=== PATIENT | female | born 1940 | race African-American/Black ===

== ENCOUNTER 2017-02-26 11:45 | Emergency (ER) | payer OTHER, BC ==
[2017-02-26 12:01] VITALS: BP 153/80; PULSE 80; TEMP 97.6; BMI 25.0
--- NOTE | 2017-02-26 12:45 | PDOC ---
History of Present Illness - General Chief Complaint: Bite Stated Complaint: BITE Time Seen by Provider: 02/26/17 12:35 History Source: Patient Exam Limitations: No Limitations - History of Present Illness Initial Comments: 02/26/17 16:19 Patient is a 76-year-old female, no significant medical history currently on no medications presents to the emergency department with multiple bug bites, erythema surrounding bug bite on right posterior forearm. No pain. Area is pruritic. Past Medical History: Denies. Allergies: No known allergies Medications: None Family History: Non-contributory Social History: Denies smoking, alcohol use, or IVDU Review of Systems GENERAL/CONSTITUTIONAL: No fever or chills. No weakness. No weight change. HEAD, EYES, EARS, NOSE AND THROAT: No change in vision. No ear pain or discharge. No sore throat. CARDIOVASCULAR: No chest pain or shortness of breath. RESPIRATORY: No cough, wheezing, or hemoptysis. GASTROINTESTINAL: No nausea, vomiting, diarrhea or constipation. No rectal bleeding. GENITOURINARY: No dysuria, frequency, or change in urination. MUSCULOSKELETAL: No joint or muscle swelling or pain. No neck or back pain. SKIN: No rash or easy bruising. Erythema to right and left forearms. NEUROLOGIC: No headache, vertigo, loss of consciousness, or loss of sensation. PSYCHIATRIC: No depression or anxiety. ENDOCRINE: No increased thirst. No abnormal weight change. HEMATOLOGIC/LYMPHATIC: No anemia, easy bleeding, or history of blood clots. ALLERGIC/IMMUNOLOGIC: Large wheal to right posterior forearm, erythematous raised area 2 to left forearm. Physical Exam: GENERAL: The patient is awake, alert, and fully oriented, in no acute distress. HEAD: Normal with no signs of trauma. EYES: Pupils equal, round and reactive to light, extraocular movements intact, sclera anicteric, conjunctiva clear. ENT: Ears normal, nares patent, oropharynx clear without exudates. Moist mucous membranes. No uvula deviation NECK: Normal range of motion, supple without lymphadenopathy, JVD, or masses. LUNGS: Breath sounds equal, clear to auscultation bilaterally. No wheezes, and no crackles. HEART: Regular rate and rhythm, normal S1 and S2 without murmur, rub or gallop. ABDOMEN: Soft, nontender, normoactive bowel sounds. No guarding, no rebound. No masses. No bruising or abrasions MUSCULOSKELETAL: Normal range of motion, no edema. No clubbing or cyanosis. No cords, erythema, or tenderness. No CVA Tenderness with fist. NEUROLOGICAL: Cranial nerves II through XII grossly intact. Normal speech, normal gait. PSYCH: Normal mood, normal affect. SKIN: Visible papule to right posterior forearm with surrounding erythema and induration, no warmth. 2 macular lesions to left forearm non-umbilicated nonvesicular, no streaking or evidence of cellulitis. Large wheal surrounding papular lesion on right posterior forearm measuring approximately 14 centimeters in length and 6 cm in width. Well-defined. Past History - Past Medical History Allergies/Adverse Reactions: Allergies Allergy/AdvReac Type Severity Reaction Status Date / Time No Known Allergies Allergy Verified 02/26/17 11:55 Home Medications: Ambulatory Orders Cephalexin Monohydrate [Keflex -] 500 mg PO TID #30 capsule 02/26/17 Hydrocortisone 2.5% Lotion [Hytone 2.5% Lotion -] 1 applic TP BID #1 bottle Other medical history: Denies - Immunization History Immunization Up to Date: Yes - Suicide/Smoking/Psychosocial Hx Smoking Status: No Smoking History: Never smoked Number of Cigarettes Smoked Daily: 0 Information on smoking cessation initiated: No Hx Alcohol Use: No Drug/Substance Use Hx: No Substance Use Type: None *Physical Exam - Vital Signs Last Vital Signs Temp Pulse Resp BP Pulse Ox 97.6 F 80 16 153/80 98 02/26/17 11:55 02/26/17 11:55 02/26/17 11:55 02/26/17 11:55 02/26/17 11:55 Medical Decision Making - Medical Decision Making 02/26/17 16:22 A/P: Patient here for evaluation of multiple bug bites to left and right forearm , the right forearm with surrounding erythema, localized IgE reaction. Warm to touch. Does not appear cellulitic does appear to be localized reaction, no streaking. Patient to apply cool compresses to area, will prescribe Hytone 2.5% . Explained to patient that area may take several days to resolve should start to resolve after 72 hours. Area was marked with a surgical marker in order to monitor, if any increased redness, swelling, or signs of infection or cellulitis patient to turn to ER for antibiotic therapy. 02/26/17 16:28 *DC/Admit/Observation/Transfer Diagnosis at time of Disposition: Bug bite Qualifiers: Encounter type: initial encounter Qualified Code(s): W57.XXXA - Bitten or stung by nonvenomous insect and other nonvenomous arthropods, initial encounter Insect bite of forehead with local reaction Qualifiers: Encounter type: initial encounter Qualified Code(s): S00.86XA - Insect bite ( nonvenomous) of other part of head, initial encounter; W57.XXXA - Bitten or stung by nonvenomous insect and other nonvenomous arthropods, initial encounter - Discharge Dispostion Disposition: HOME Condition at time of disposition: Good Admit: No - Prescriptions Prescriptions: Hydrocortisone 2.5% Lotion [Hytone 2.5% Lotion -] 1 applic TP BID #1 bottle Cephalexin Monohydrate [Keflex -] 500 mg PO TID #30 capsule - Patient Instructions Printed Discharge Instructions: DI for Insect Bites and Stings Additional Instructions: Please note swelling may persist for the next 2 days, total of 72 hours since initial bite. Apply cool compresses to area, as noted area was marked if any increased redness , swelling, or streaking up arm please, immediately back to emergency department. If symptoms are resolving by tomorrow, please do not take antibiotics.
== END 2017-02-26 12:50 | disposition home or self-care (01) ==
LOC: JERFT 11:45
DX: S51.851A Open bite of right forearm, initial encounter (principal); W57.XXXA Bitten or stung by nonvenomous insect and other nonvenomous arthropods, initial encounter; Y93.89 Activity, other specified; Y92.9 Unspecified place or not applicable
CPT/HCPCS: 99281-25

== ENCOUNTER 2018-04-04 01:17 | Inpatient (IN) | payer OTHER, BC ==
[2018-04-04 01:34] VITALS: BMI 29.2
--- NOTE | 2018-04-04 01:44 | PDOC ---
Attending Attestation - Resident Resident Name: VibhaalysialexaMarcial - ED Attending Attestation I have performed the following: I have examined & evaluated the patient, The case was reviewed & discussed with the resident, I agree w/resident's findings & plan, Exceptions are as noted - HPI HPI: 04/04/18 05:50 77 years old no significant past medical history presents to the emergency department with sudden onset nonexertional right lower chest discomfort. Started yesterday at home while at rest it is intermittent exact exacerbated by deep inspiration and lying flat. Denies left-sided chest pain. There is no associated diaphoresis exertional component nausea or vomiting no history of similar. No PE or DVT risk factors. - Physicial Exam PE: 04/04/18 05:50 Vitals: Triage Vital signs reviewed General Appearance: no acute distress, well nourished well developed, Head: Atraumatic, Neck: Supple;No Nucal rigidity Chest Wall: Nontender Cardiac: Regular rate and rhythym, no murmurs, no rubs, no gallops, Lungs: Clear to auscultation bilateral, good air movement bilaterally, Abdomen: Soft, non distended, normal bowel sounds, non tender to palpation Extremities: Full range of motion to all extremities, no cyanosis, clubbing, or edema Skin: Warm and dry, no rashes or lesions, no rash, no petechiae Neuro: AOX3; Cranial Nerves 2-12 grossly intact, Strength intact to all extremities, Sensation intact to all extremities,gait normal Psych: normal mood, normal affect - Medical Decision Making 04/04/18 06:57 Pleuritic chest pain low risk for PE We'll check labs d-dimer EKG chest x-ray observe and reassess Reevaluation d-dimer elevated will CTA. CTA positive for right lower lobe PE Normal kidney function We'll treat with Lovenox and admit the hospital for further management. Heart Score/ECG Review - History History: Slightly suspicious - Electrocardiogram EKG: Normal - Age Age: >/= 65 - Risk Factors Based on the list above the patient has:: No risk factors known - Troponin Troponin: </= normal limit - Score Heart Score - Total: 2 - ECG Impressions Comment:: 04/04/18 05:52 EKG performed at 2:15 demonstrates sinus rhythm no ST elevations or T-wave inversions Interpreted by me.
--- NOTE | 2018-04-04 01:57 | PDOC ---
History of Present Illness - General History Source: Patient Exam Limitations: No Limitations - History of Present Illness Initial Comments: 04/04/18 01:52 77 yo female no significant PMH (does not follow with a Primary Care Doctor) presents to the ED for sudden onset non exertional right lower chest pain. Pain started yesterday at home while at rest, it is intermittent made worse with deep breaths and lying flat, is located maxillary line at the bottom of the 12th rib, described as sharp/stabbing. Pt took 1 over the counter Tylenol tablet yesterday which did help with the pain. Denies N/V/F/C, CP, SOB, abdominal pain, back pain or changes in bowel or bladder habits. <Marcial Connell - Last Filed: 04/04/18 07:12> <Tien Doherty - Last Filed: 04/04/18 09:01> - General Chief Complaint: Pain Stated Complaint: RIB PAIN Time Seen by Provider: 04/04/18 01:24 Past History - Immunization History Immunization Up to Date: Yes - Suicide/Smoking/Psychosocial Hx Smoking Status: No Smoking History: Never smoked Have you smoked in the past 12 months: No Number of Cigarettes Smoked Daily: 0 Information on smoking cessation initiated: No Hx Alcohol Use: No Drug/Substance Use Hx: No Substance Use Type: None <Marcial Connell - Last Filed: 04/04/18 07:12> <Tien Doherty - Last Filed: 04/04/18 09:01> - Past Medical History Allergies/Adverse Reactions: Allergies Allergy/AdvReac Type Severity Reaction Status Date / Time No Known Allergies Allergy Verified 04/04/18 01:32 Home Medications: Ambulatory Orders Cephalexin Monohydrate [Keflex -] 500 mg PO TID #30 capsule 02/26/17 Hydrocortisone 2.5% Lotion [Hytone 2.5% Lotion -] 1 applic TP BID #1 bottle Review of Systems - Review of Systems Constitutional: No: Chills, Fever Respiratory: Yes: Other (right lower chest pain with deep inspiration). No: Cough, Shortness of Breath Cardiac (ROS): No: Chest Pain, Edema ABD/GI: No: Constipated, Diarrhea, Nausea, Vomiting : No: Burning, Dysuria Musculoskeletal: No: Back Pain <Marcial Connell - Last Filed: 04/04/18 07:12> *Physical Exam - Vital Signs Last Vital Signs Temp Pulse Resp BP Pulse Ox 98.0 F 78 18 146/87 96 04/04/18 01:32 04/04/18 01:32 04/04/18 01:32 04/04/18 01:32 04/04/18 01:32 - Physical Exam General Appearance: Yes: Nourished, Appropriately Dressed. No: Apparent Distress HEENT: positive: EOMI Respiratory/Chest: positive: Lungs Clear, Normal Breath Sounds. negative: Crackles, Rales, Stridor, Wheezing Cardiovascular: positive: Regular Rhythm, Regular Rate, S1, S2, Other (right lower chest pain not reproducible on palpation). negative: Edema, JVD, Murmur Vascular Pulses: Dorsalis-Pedis (R): 3+, Doralis-Pedis (L): 3+ Gastrointestinal/Abdominal: positive: Normal Bowel Sounds, Flat, Soft. negative : Pulsatile Mass, Distended, Guarding, Rebound, Tenderness Extremity: positive: Normal Capillary Refill Integumentary: positive: Normal Color, Dry, Warm Neurologic: positive: Fully Oriented, Alert, Normal Mood/Affect, Normal Response <Marcial Connell - Last Filed: 04/04/18 07:12> - Vital Signs Last Vital Signs Temp Pulse Resp BP Pulse Ox 98.0 F 78 18 146/87 96 04/04/18 01:32 04/04/18 01:32 04/04/18 01:32 04/04/18 01:32 04/04/18 01:32 <Tien Doherty - Last Filed: 04/04/18 09:01> ED Treatment Course - LABORATORY CBC & Chemistry Diagram: 04/04/18 02:04 04/04/18 02:04 - RADIOLOGY Radiology Studies Ordered: Category Date Time Status CHEST PA & LAT [RAD] Stat Radiology 04/04/18 01:43 Ordered <Marcial Connell - Last Filed: 04/04/18 07:12> - LABORATORY CBC & Chemistry Diagram: 04/04/18 02:04 04/04/18 02:04 - ADDITIONAL ORDERS Additional order review: Laboratory Results 04/04/18 04/04/18 04/04/18 06:49 02:04 02:04 D-Dimer 3401 H Sodium 140 Potassium 4.0 Chloride 106 Carbon Dioxide 28 Anion Gap 6 L BUN 12 Creatinine 0.7 Creat Clearance w eGFR > 60 Random Glucose 104 Calcium 8.6 Total Bilirubin 0.3 AST 13 L ALT 15 Alkaline Phosphatase 73 Creatine Kinase 55 Troponin I < 0.02 Total Protein 6.7 Albumin 3.4 Urine Color Urine Appearance Urine pH Ur Specific [place] Urine Protein Urine Glucose (UA) Urine Ketones Urine Blood Urine Nitrite Urine Bilirubin Urine Urobilinogen Ur Leukocyte Esterase Urine WBC (Auto) Urine RBC (Auto) Stool Occult Blood Negative 04/04/18 02:04 D-Dimer Sodium Potassium Chloride Carbon Dioxide Anion Gap BUN Creatinine Creat Clearance w eGFR Random Glucose Calcium Total Bilirubin AST ALT Alkaline Phosphatase Creatine Kinase Troponin I Total Protein Albumin Urine Color Straw Urine Appearance Clear Urine pH 6.0 Ur Specific [place] 1.005 L Urine Protein Negative Urine Glucose (UA) Negative Urine Ketones Negative Urine Blood Negative Urine Nitrite Negative Urine Bilirubin Negative Urine Urobilinogen Negative Ur Leukocyte Esterase 1+ H Urine WBC (Auto) 2 Urine RBC (Auto) 1 Stool Occult Blood 04/04/18 02:04 RBC 4.80 MCV 80.8 MCHC 32.1 RDW 15.4 MPV 9.6 D Neutrophils % 60.5 Lymphocytes % 26.9 D Monocytes % 9.0 Eosinophils % 3.1 Basophils % 0.5 - Medications Given in the ED: ED Medications Discontinued Medications Generic Name Dose Route Start Last Admin Trade Name Freq PRN Reason Stop Dose Admin Enoxaparin Sodium 77 mg 04/04/18 06:54 04/04/18 08:03 Lovenox - SQ 04/04/18 06:55 Not Given ONCE ONE Enoxaparin Sodium 80 mg 04/04/18 07:21 04/04/18 08:15 Lovenox - SQ 04/04/18 07:22 80 mg ONCE ONE Administration <Tien Doherty - Last Filed: 04/04/18 09:01> Medical Decision Making - Medical Decision Making 04/04/18 03:51 77 yo female presents with 2 days of sudden onset right lower chest pain. Pain made worse with inspiration. vitals stable DDX: ACS, PE, costochondritis, gallstones D dimer 3400s, will do chest CTA to r/o PE 04/04/18 07:09 CTA positive for PE Started on 1mg/kg lovenox, stool occult sent and will admit pt to hospitalist Sign out to Dr. Arias <Marcial Connell - Last Filed: 04/04/18 07:12> *DC/Admit/Observation/Transfer - Discharge Dispostion Decision to Admit order: Yes <Marcial Connell - Last Filed: 04/04/18 07:12> <Tien Doherty - Last Filed: 04/04/18 09:01> Diagnosis at time of Disposition: PE (pulmonary thromboembolism) - Discharge Dispostion Condition at time of disposition: Stable
[2018-04-04 02:25] LABS: BASO % 0.5 % (0-2.0); EOS % 3.1 % (0-4.5); HEMATOCRIT 38.8 % (32.4-45.2); HEMOGLOBIN 12.4 GM/dL (10.7-15.3); LYMPH % 26.9 % (8-40); MCH 25.9 pg (25.7-33.7); MCHC 32.1 g/dl (32.0-36.0); MEAN CELL VOLUME 80.8 fl (80-96); MEAN PLT VOLUME 9.6 fl (7.5-11.1); NEUT % 60.5 % (42.8-82.8); PLATELET COUNT 158 K/MM3 (134-434); RDW 15.4 % (11.6-15.6); WHITE BLOOD COUNT 6.3 K/mm3 (4.0-10.0)
[2018-04-04 02:27] LABS: URINE APPEARANCE CLEAR; URINE BILIRUBIN NEGATIVE (<2.0 mg/dL); URINE COLOR STRAW; URINE GLUCOSE (UA) NEGATIVE (NEGATIVE); URINE KETONE NEGATIVE (NEGATIVE); URINE LEUK ESTERASE 1+ (NEGATIVE); URINE NITRITE NEGATIVE (NEGATIVE); URINE PROTEIN NEGATIVE (NEGATIVE); URINE UROBILINOGEN NEGATIVE mg/dL (0.2-1.0)
[2018-04-04 02:41] LABS: ALBUMIN 3.4 g/dl (3.4-5.0); ALK PHOS 73 U/L (45-117); ANION GAP 6 MMOL/L (8-16); BILIRUBIN,TOTAL 0.3 mg/dL (0.2-1); BLOOD UREA NITROGEN 12 mg/dL (7-18); CALCIUM 8.6 mg/dL (8.5-10.1); CHLORIDE 106 mmol/L (98-107); CO2 28 mmol/L (21-32); CREATININE 0.7 mg/dL (0.55-1.3); GLUCOSE,RANDOM 104 mg/dL (74-106); SGOT/AST 13 U/L (15-37); SGPT/ALT 15 U/L (13-61); SODIUM 140 mmol/L (136-145); TOT PROT 6.7 g/dl (6.4-8.2)
[2018-04-04] MEDS ORDERED: ENOXAPARIN NA (PORCINE) 80 MG/0.8 ML DISP.SYRIN SQ ONE ×3 (06:54→08:05)
--- NOTE | 2018-04-04 07:40 | HP ---
CHIEF COMPLAINT: chest pain PCP:does not have one HISTORY OF PRESENT ILLNESS: 77 year old AA healthy lady with no pmhx presented with 2 days history of discomfort feeling beneath her right lower ribs , pain worsening last night with deep breathing that prompted the pt to come to ED. she denies any fever, chills N/V/D/C, denies any palpitation or sob , denies light headedness , abdominal pain or urinary symptoms , denies leg swelling or joint pain. no recent travel or sick contact. ER course was notable for: (1)CBC, BMP (2)D dimer 3400 (3)CTA positive for PE , started on Lovenox Recent Travel:denies PAST MEDICAL HISTORY: nothing PAST SURGICAL HISTORY: Left eye cataract , hysterectomy at age of 38 . 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 Family History: no significant , parents at age 95 and 101. Allergies No Known Allergies Allergy (Verified 04/04/18 01:32) HOME MEDICATIONS: Home Medications Medication Instructions Recorded Cephalexin Monohydrate [Keflex -] 500 mg PO TID #30 capsule 02/26/17 Hydrocortisone 2.5% Lotion [Hytone 1 applic TP BID #1 bottle 02/26/17 2.5% Lotion -] REVIEW OF SYSTEMS denies any other symptoms PHYSICAL EXAMINATION Vital Signs - 24 hr 04/04/18 01:32 Temperature 98.0 F Pulse Rate 78 Respiratory 18 Rate Blood Pressure 146/87 O2 Sat by Pulse 96 Oximetry (%) GENERAL: AAOx3 in NAD HEAD: NC/AT EYES: EOMI, Conjunctiva clear, sclera anicteric ENT: moist mucous membrane NECK: Supple, no JVD LUNGS: decrease breath sound at the bases with mild crackles , no accessory muscle use. HEART: RRR, NSR, normal s1, s2, murmur no M/R/G ABDOMEN: Soft, ND, NT, +BS 4 Q, no CVA Tenderness LOWER EXTREMITIES: no edema, +2DP pulse, NEUROLOGICAL: No focal deficit. Normal speech. gait not observed. PSYCHIATRIC: Cooperative. Good eye contact. Appropriate mood and affect. SKIN: Warm, dry, Laboratory Results - last 24 hr 04/04/18 04/04/18 04/04/18 02:04 02:04 02:04 WBC 6.3 RBC 4.80 Hgb 12.4 Hct 38.8 MCV 80.8 MCH 25.9 MCHC 32.1 RDW 15.4 Plt Count 158 MPV 9.6 D Absolute Neuts (auto) 3.8 Neutrophils % 60.5 Lymphocytes % 26.9 D Monocytes % 9.0 Eosinophils % 3.1 Basophils % 0.5 Nucleated RBC % 0 D-Dimer Sodium 140 Potassium 4.0 Chloride 106 Carbon Dioxide 28 Anion Gap 6 L BUN 12 Creatinine 0.7 Creat Clearance w eGFR > 60 Random Glucose 104 Calcium 8.6 Total Bilirubin 0.3 AST 13 L ALT 15 Alkaline Phosphatase 73 Creatine Kinase 55 Troponin I < 0.02 Total Protein 6.7 Albumin 3.4 Urine Color Straw Urine Appearance Clear Urine pH 6.0 Ur Specific [place] 1.005 L Urine Protein Negative Urine Glucose (UA) Negative Urine Ketones Negative Urine Blood Negative Urine Nitrite Negative Urine Bilirubin Negative Urine Urobilinogen Negative Ur Leukocyte Esterase 1+ H Urine WBC (Auto) 2 Urine RBC (Auto) 1 04/04/18 02:04 WBC RBC Hgb Hct MCV MCH MCHC RDW Plt Count MPV Absolute Neuts (auto) Neutrophils % Lymphocytes % Monocytes % Eosinophils % Basophils % Nucleated RBC % D-Dimer 3401 H Sodium Potassium Chloride Carbon Dioxide Anion Gap BUN Creatinine Creat Clearance w eGFR Random Glucose Calcium Total Bilirubin AST ALT Alkaline Phosphatase Creatine Kinase Troponin I Total Protein Albumin Urine Color Urine Appearance Urine pH Ur Specific [place] Urine Protein Urine Glucose (UA) Urine Ketones Urine Blood Urine Nitrite Urine Bilirubin Urine Urobilinogen Ur Leukocyte Esterase Urine WBC (Auto) Urine RBC (Auto) CBC, BMP 04/04/18 02:04 04/04/18 02:04 ASSESSMENT/PLAN: 77 year old AA healthy female with no pmhx presented with 2 days history of right lower lobe chest pain worsen last night associated with sob was found to have PE and was admitted to tele for further evaluation and treatment . # PE * D dimer 1400, CTA positive for PE * Started on [id number] mg SQ Q 12 hour * EKG with no significant changes * tele monitor * Echo * repeat lab in am * lipid panel #Pulmonary nodule * follow up as out # RLL pleural effusion * likely due to PE * monitor for now no need for pleurocentesis # FEN * F: no standing fluids * E: WNL * N: regular diet # proph * Dvts on lovenox # dispo * admit to tele # code status : full code Visit type - Emergency Visit Emergency Visit: Yes ED Registration Date: 04/04/18 Care time: The patient presented to the Emergency Department on the above date and was hospitalized for further evaluation of their emergent condition. - New Patient This patient is new to me today: Yes Date on this admission: 04/04/18 - Critical Care Critical Care patient: No
[2018-04-04] MEDS ORDERED: ACETAMINOPHEN 325 MG TABLET (FP) PO PRN (08:30)
[2018-04-04 10:02] LABS: INR 1.15 (0.83-1.09); PROTHROMBIN TIME (PATIENT) 13.6 SEC (9.7-13.0)
[2018-04-04 10:05] LABS: ACTIVATED PTT 33.8 SECONDS (25.2-36.5)
[2018-04-04 10:19] LABS: CHOLESTEROL 173 mg/dL (50-200); HDL CHOLESTEROL 53 mg/dL (40-60); TRIGLYCERIDES 61 mg/dL (0-150)
--- NOTE | 2018-04-04 10:44 | EKG ---
Test Reason : Blood Pressure : / mmHG Vent. Rate : 081 BPM Atrial Rate : 081 BPM P-R Int : 162 ms QRS Dur : 086 ms QT Int : 378 ms P-R-T Axes : 051 -04 017 degrees QTc Int : 439 ms NORMAL SINUS RHYTHM WHEN COMPARED WITH ECG OF 01-DEC-2012 09:08, NO SIGNIFICANT CHANGE WAS FOUND Confirmed by STEPH HERNÁNDEZ MD ([id number]) on 04/04/2018 10:43:56 AM Referred By: Confirmed By:STEPH HERNÁNDEZ MD
--- NOTE | 2018-04-04 15:07 | ECHO ---
Name: MICHELLE MOTA Exam:Adult Echocardiogram Study Date: 04/04/2018 12:19 PM Age: 77 yrs Reason For Study: PULM EMBOLISM Height: 67 in Weight: 170 lb BSA: 1.9 m2 Left Ventricle Ejection Fraction = 60-65%. Right Ventricle The right ventricle is normal in size and function. Atria Normal left and right atrial size and function. Mitral Valve The mitral valve is normal in structure and function. There is no mitral valve stenosis. There is mil d mitral regurgitation. Tricuspid Valve The tricuspid valve is normal in structure and function. There is mild tricuspid regurgitation. Aortic Valve There is mild aortic sclerosis.;. No hemodynamically significant valvular aortic stenosis. No aortic regurgitation is present. Pulmonic Valve The pulmonic valve is normal in structure and function. There is no pulmonic valvular stenosis. There is no pulmonic valvular regurgitation. Great Vessels The aortic root is normal size. Pericardium/Pleura There is no pericardial effusion. Interpretation Summary Ejection Fraction = 60-65%. The right ventricle is normal in size and function. There is mild mitral regurgitation. There is mild tricuspid regurgitation. There is mild aortic sclerosis.; There is no pericardial effusion. MD Miller *Danielle 04/04/2018 03:06 PM
--- NOTE | 2018-04-04 16:29 | PN ---
Teaching Attending Note Name of Resident: Gumaro Torre ATTENDING PHYSICIAN STATEMENT I saw and evaluated the patient. I reviewed the resident's note and discussed the case with the resident. I agree with the resident's findings and plan as documented. SUBJECTIVE:77yo F with no PMH presented to the ER with R sided rib pain x5 days. was very vague initially and only felt it on deep inspiration. was worse last night which prompted her to the ER. has been having non productive cough only when out in the cold and claims she never coughed inside. never had similar symptoms in the past. denies OCP, smoking, recent travel, herbal supplements. no family hx of clotting or cancer Denies CP, SOB, fever, chills, N/V/C/D or hemoptysis OBJECTIVE: Last Vital Signs Temp Pulse Resp BP Pulse Ox 97.8 F 74 17 142/85 96 04/04/18 10:47 04/04/18 10:47 04/04/18 10:47 04/04/18 10:47 04/04/18 10:47 General NAD CV S1 S2 RRR no murmur/rub/gallop Lungs CTA B/L no wheezing/rales/rhonchi Abdomen Soft NT/ND Extremities trace pitting edema. no calf tenderness ASSESSMENT AND PLAN: 77yo F with no pMH presented to the ER with R rib pain and found to have a PE 1. RLL PE-Tele admission. no risk factors. hemodynamically stable. not hypoxic. cardiac markers neg x2. will start on full dose lovenox. echo to r/o strain. will monitor overnight. discussed anticoagulation options and wants to discuss in detail with tonight. will start tomorrow if remains stable. pleural effusion and consolidation likely reactive due to PE. with no fever/ leukocytosis or cough would not treat at this time. will need to f/u [facility] hematology as outpatient for hypercoagability workup to evaluate for etiology 2. spoke with present at bedside. all questions answered. verbalized understanding and agreement
--- NOTE | 2018-04-04 17:39 | CON.PULM ---
Consult Consult Specialty:: PULMONARY Referred by:: ELOISE Reason for Consultation:: PE - History of Present Illness Chief Complaint: SOB/CP History of Present Illness: 77 yo female no significant PMH (does not follow with a Primary Care Doctor) presents to the ED for sudden onset non exertional right lower chest pain. Pain started yesterday at home while at rest, it is intermittent made worse with deep breaths and lying flat, is located maxillary line at the bottom of the 12th rib, described as sharp/stabbing. Pt took 1 over the counter Tylenol tablet yesterday which did help with the pain. 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 No: AFIB Pulmonary: No: Asthma, COPD, O2 Dependent Gastrointestinal: No: Ascites Hepatobiliary: No: Cirrhosis Renal/: No: Renal Failure Reproductive: Yes: Postmenopausal Heme/Onc: No: Anemia Psych: No: Addictions Musculoskeletal: No: Chronic low back pain Endocrine: No: Diabetes Mellitus - Past Surgical History Past Surgical History: Yes: - Alcohol/Substance Use Hx Alcohol Use: No - Smoking History Smoking history: Never smoked Have you smoked in the past 12 months: No Aproximately how many cigarettes per day: 0 - Social History Usual Living Arrangement: With Spouse Place of : [facility] History of Recent Travel: No Home Medications - Allergies Allergies/Adverse Reactions: Allergies Allergy/AdvReac Type Severity Reaction Status Date / Time No Known Allergies Allergy Verified 04/04/18 01:32 - Home Medications Home Medications: Ambulatory Orders Cephalexin Monohydrate [Keflex -] 500 mg PO TID #30 capsule 02/26/17 Hydrocortisone 2.5% Lotion [Hytone 2.5% Lotion -] 1 applic TP BID #1 bottle Family Disease History - Family Disease History Family History: Unremarkable Review of Systems - Review of Systems Constitutional: denies: Fever Eyes: denies: Blurred Vision HENT: denies: Difficult Swallowing Neck: denies: Decreased ROM Cardiovascular: reports: Chest Pain, Shortness of Breath Respiratory: reports: Cough, Exercise Intolerance, SOB on Exertion. denies: Hemoptysis, Wheezing Gastrointestinal: denies: Abdominal Pain Genitourinary: denies: Burning Breasts: reports: No Symptoms Reported Musculoskeletal: reports: No Symptoms Integumentary: reports: No Symptoms Neurological: reports: No Symptoms Endocrine: reports: No Symptoms Physical Exam Vital Sings: Vital Signs Temperature 97.8 F 04/04/18 17:14 Pulse Rate 88 04/04/18 17:14 Respiratory Rate 18 04/04/18 17:14 Blood Pressure 134/81 04/04/18 17:14 O2 Sat by Pulse Oximetry (%) 96 04/04/18 17:14 Constitutional: Yes: Calm Eyes: Yes: EOM Intact HENT: Yes: Normocephalic Neck: Yes: Trachea Midline Cardiovascular: Yes: Regular Rate and Rhythm Respiratory: Yes: CTA Bilaterally ...Inspection: Yes: WNL ...Clubbing: No Gastrointestinal: Yes: Normal Bowel Sounds, Soft Renal/: Yes: WNL Musculoskeletal: Yes: WNL Extremities: Yes: WNL Edema: No Neurological: Yes: Alert Psychiatric: Yes: Alert Labs: CBC, BMP 04/04/18 02:04 04/04/18 02:04 REST REVIEWED Imaging - Results Chest X-ray: Report Reviewed, Image Reviewed Cat Scan: Report Reviewed, Image Reviewed Problem List - Problems (1) Hypertension Code(s): I10 - ESSENTIAL (PRIMARY) HYPERTENSION Assessment/Plan LIKELY UNPROVOKED PULMONARY EMBOLISM NOW ON LOVENOX WILL TRANSITION TO NOACS HYPERCOAG W/U TO BE DRAWN CHECK B/L LOWER EXT DOPPLERS(LOW INDEX OF SUSPICION FOR DVT) THANK YOU FOR THIS CONSULT Cindy RODRIGUES MD
[2018-04-04] MEDS: ENOXAPARIN NA (PORCINE) 80 MG/0.8 ML DISP.SYRIN SQ SCH (21:22)
[2018-04-04] MEDS ORDERED: ROSUVASTATIN CA 10 MG TABLET (FP) PO SCH (22:00)
[2018-04-04] MEDS ORDERED: ROSUVASTATIN CA 20 MG TABLET (FP) PO SCH (22:00)
[2018-04-05 07:01] LABS: BASO % 0.6 % (0-2.0); EOS % 3.2 % (0-4.5); HEMOGLOBIN 13.1 GM/dL (10.7-15.3); LYMPH % 33.7 % (8-40); MCH 27.1 pg (25.7-33.7); MCHC 33.6 g/dl (32.0-36.0); MEAN CELL VOLUME 80.7 fl (80-96); MEAN PLT VOLUME 9.5 fl (7.5-11.1); NEUT % 53.5 % (42.8-82.8); PLATELET COUNT 163 K/MM3 (134-434); RBC 4.83 M/mm3 (3.60-5.2); RDW 15.3 % (11.6-15.6); WHITE BLOOD COUNT 4.4 K/mm3 (4.0-10.0)
[2018-04-05 07:16] LABS: ALBUMIN 3.2 g/dl (3.4-5.0); ALK PHOS 73 U/L (45-117); ANION GAP 4 MMOL/L (8-16); BILIRUBIN,TOTAL 0.4 mg/dL (0.2-1); BLOOD UREA NITROGEN 12 mg/dL (7-18); CALCIUM 8.5 mg/dL (8.5-10.1); CHLORIDE 106 mmol/L (98-107); CO2 31 mmol/L (21-32); CREATININE 0.6 mg/dL (0.55-1.3); GLUCOSE,RANDOM 82 mg/dL (74-106); MAGNESIUM 2.5 mg/dL (1.8-2.4); PHOSPHOROUS 4.2 mg/dL (2.5-4.9); SGOT/AST 11 U/L (15-37); SGPT/ALT 14 U/L (13-61); SODIUM 141 mmol/L (136-145); TOT PROT 6.7 g/dl (6.4-8.2)
[2018-04-05] MEDS: ENOXAPARIN NA (PORCINE) 80 MG/0.8 ML DISP.SYRIN SQ SCH (09:33)
--- NOTE | 2018-04-05 11:43 | PN ---
Progress Note (short form) - Note Progress Note: PULMONARY NO SOB/NO CP VSS ANICTERIC CLEAR B/L LUNG FLOWERS S1S2 BS+ NO EDEMA LABS/CTA RE-REVIEWED LIKELY UNPROVOKED SUBSEGMENTAL PE HEMODYNAMICALLY STABLE NO SIGNIFICANT PMH ON LOVENOX BID WILL TRANSITION TO XARELTO 15 MG BID FOR 21 DAYS THEN 20MG DAILY FOR 3-6 MONTHS PATIENT DOES NOT HAVE A PMD(WISHES TO AFFILIATE WITH DRS. REA) ALSO HAS PULMONARY NODULE WHICH NEEDS F/U WITH REPEAT CT CHEST 6-8 WEEKS CAN LOWER EXT DOPPLERS/HYPERCOAG WORKUP OUTPATIENT Cindy RODRIGUES MD Problem List - Problems (1) Hypertension Code(s): I10 - ESSENTIAL (PRIMARY) HYPERTENSION
[2018-04-05 12:14] VITALS: BP 144/78; PULSE 89; TEMP 98.9
--- NOTE | 2018-04-05 12:34 | DS ---
Physical Exam: SUBJECTIVE: Patient seen and examined. asymptomatic. no longer having Rib pain or pleuritic like CP. denies CP, SOB, fever, chills, N/V/C/D, cough or hemoptysis. no SOB on exertion OBJECTIVE: Vital Signs Period Temp Pulse Resp BP Sys/Reich Pulse Ox Last 24 Hr 97.5 F-98.9 F 66-89 16-20 122-144/71-98 96 PHYSICAL EXAM GENERAL: The patient is awake, alert, and fully oriented, in no acute distress. HEAD: Normal with no signs of trauma. EYES: PERRL, extraocular movements intact, sclera anicteric, conjunctiva clear. ENT: Ears normal, nares patent, oropharynx clear without exudates, moist mucous membranes. NECK: Trachea midline, full range of motion, supple. LUNGS: Breath sounds equal, clear to auscultation bilaterally, no wheezes, no crackles, no accessory muscle use. HEART: Regular rate and rhythm, S1, S2 without murmur, rub or gallop. ABDOMEN: Soft, nontender, nondistended, normoactive bowel sounds, no guarding, no rebound, no hepatosplenomegaly, no masses. EXTREMITIES: 2+ pulses, warm, well-perfused, no edema. NEUROLOGICAL: Cranial nerves II through XII grossly intact. Normal speech, gait not observed. PSYCH: Normal mood, normal affect. SKIN: Warm, dry, normal turgor, no rashes or lesions noted. LABS Laboratory Results - last 24 hr 04/05/18 04/05/18 05:30 05:30 WBC 4.4 RBC 4.83 Hgb 13.1 Hct 39.0 MCV 80.7 MCH 27.1 MCHC 33.6 RDW 15.3 Plt Count 163 MPV 9.5 Absolute Neuts (auto) 2.3 Neutrophils % 53.5 Lymphocytes % 33.7 D Monocytes % 9.0 Eosinophils % 3.2 Basophils % 0.6 Nucleated RBC % 0 Sodium 141 Potassium 4.0 Chloride 106 Carbon Dioxide 31 Anion Gap 4 L BUN 12 Creatinine 0.6 Creat Clearance w eGFR > 60 Random Glucose 82 Calcium 8.5 Phosphorus 4.2 Magnesium 2.5 H Total Bilirubin 0.4 AST 11 L ALT 14 Alkaline Phosphatase 73 Total Protein 6.7 Albumin 3.2 L HOSPITAL COURSE: Date of Admission:04/04/18 Date of Discharge: 04/05/18 Admitting diagnosis: PE, pulmonary nodule Pre hospital course 77yo F with no PMH presented to the ER with R sided rib pain x5 days. was very vague initially and only felt it on deep inspiration. was worse last night which prompted her to the ER. has been having non productive cough only when out in the cold and claims she never coughed inside. never had similar symptoms in the past. denies OCP, smoking, recent travel, herbal supplements. no family hx of clotting or cancer Denies CP, SOB, fever, chills, N/V/C/D or hemoptysis Subsequent hospital course admitted to [facility] for continuous cardiac monitoring. started on full dose lovenox. no events on athletic monitor. cardiac enzymes neg x2. echo done with no signs of heart strain. seen by pulmonary. started on xarelto. will need CT follow up in 6-8weeks to evaluate nodule. counselled in detail with present about risks of bleeding and monitoring. d/c home Minutes to complete discharge: 40 Discharge Summary Reason For Visit: PULMONARY EMBOLISM Current Active Problems PE (pulmonary thromboembolism) (Acute) Pulmonary nodule (Acute) Condition: Stable - Instructions Diet, Activity, Other Instructions: You were admitted to the hospital because of a clot found in your lung. You were started on medications to help dissolve this clot and prevent future clots from forming. THis medication is called Xarelto. You will take 15 mg twice a day for 21 days and then 20mg once a day thereafter. You will need a prescription from your primary care doctor for the other dosing. PLEASE START THIS MEDICATION TONIGHT Please monitor yourself for bleeding while on this medication. If you noticed uncontrolled bleeding call your doctor. If you fall and hit your head please come to the hospital. You will need to follow up with a switch house operator in 3-6 months to do a complete work up to determine why you developed this clot and if you need to continue this medication long-term. You were also found to have a pulmonary nodule. Follow up [facility] Dr Hogan in 6- 8weeks for repeat imaging. Follow up with your primary care doctor in 1 week Return to the ER if you develop chest pain, difficulty breathing or uncontrolled bleeding Referrals: Liz Baer [Staff Physician] - Amadeo Hogan MD [Staff Physician] - Disposition: HOME - Home Medications Comprehensive Discharge Medication List: Ambulatory Orders Rivaroxaban [Xarelto -] 15 mg PO BID #60 tab 04/05/18 This patient is new to me today: No Emergency Visit: Yes ED Registration Date: 04/04/18 Care time: The patient presented to the Emergency Department on the above date and was hospitalized for further evaluation of their emergent condition. Critical Care patient: No - Discharge Referral Referred to [facility] Med [facility].C[facility] No
--- NOTE | 2018-04-05 12:45 | EKG ---
Test Reason : Blood Pressure : / mmHG Vent. Rate : 079 BPM Atrial Rate : 079 BPM P-R Int : 158 ms QRS Dur : 084 ms QT Int : 396 ms P-R-T Axes : 037 -11 007 degrees QTc Int : 454 ms NORMAL SINUS RHYTHM POSSIBLE LEFT ATRIAL ENLARGEMENT WHEN COMPARED WITH ECG OF 04-APR-2018 02:15, NO SIGNIFICANT CHANGE WAS FOUND Confirmed by STEPH HERNÁNDEZ MD ([id number]) on 04/05/2018 12:45:24 PM Referred By: Confirmed By:STEPH HERNÁNDEZ MD
== END 2018-04-05 13:18 | disposition home or self-care (01) | DRG 176 ==
LOC: JER 01:17 → JERBED 06:58 → J4W 18:30
PROVIDERS: ADMIT Internal Medicine; ATTEND Internal Medicine
DX: I26.99 Other pulmonary embolism without acute cor pulmonale (principal); J90 Pleural effusion, not elsewhere classified; R91.1 Solitary pulmonary nodule; Z78.0 Asymptomatic menopausal state; I10 Essential (primary) hypertension
CPT/HCPCS: 36415; 71046-TC-FY; 71275-TC; 80053; 80061; 81003; 81015; 82272; 82550; 83721; 83735; 84100; 84484; 84702; 85025; 85379; 85610; 85730; 87086; 87899; 93005; 93010; 93306-TC; 99284-25